=== PATIENT | female | born 1950 | race Caucasian/White ===

== ENCOUNTER → 2016-10-18 | Outpatient (CLI) | payer MEDICARE ==
[~2016-10-18] MED LIST: ADVAIR DIS1 PUFF/DO1 IH; CORTISPORIN CR7.5 GM; DELTASONE DPS10 MG PO; DUONEB DPS3 ML IH; EFFEXOR XR DPS150 MG PO; FEOSOL-DPS325 MG PO; FLEXERIL-DPS10 MG PO; FLONASE 0.05% D16 GM NS; GABAPENTIN400 MG PO; HABITROL DPS21 MG TP; LEVAQUIN DPS750 MG PO; LORTAB 10 MG-3473 ML PO; PLAVIX75 MG PO; PRILOSEC DPS20 MG PO; PROVENTIL2.5 MG/3 M IH; REMERON DPS15 MG PO; TYLENOL DPS325 MG PO; ZOCOR DPS40 MG PO
== END | disposition home or self-care (01) ==
LOC: RESC 10-09 13:00
DX: J44.9 Chronic obstructive pulmonary disease, unspecified (principal); R91.8 Other nonspecific abnormal finding of lung field; R94.2 Abnormal results of pulmonary function studies